=== PATIENT | female | born 2000 | race Caucasian/White ===

== ENCOUNTER 2025-09-05 21:17 | Emergency (ER) | payer BC ==
[2025-09-05 22:36] LABS: #Basophils 0.07 10x3/uL (0.0-0.2); #Eosinophils 0.07 10x3/uL (0.0-0.5); #Monocytes 0.63 10x3/uL (0.0-1.1); #Neutrophils 7.21 10x3/uL (1.5-8.4); %Basophils 0.7 % (0.0-2.0); %Eosinophils 0.7 % (0.0-6.0); %Lymphocytes 17.4 % (18.0-47.0); %Monocytes 6.5 % (0.0-10.0); %Neutrophils 74.5 % (40.0-75.0); Hematocrit 39.8 % (34.9-44.5); Hemoglobin 13.8 g/dL (12.0-15.5); Mean Corpuscular Hemoglobin 31.2 pg (27.0-33.0); Mean Corpuscular Volume 89.8 fL (81.6-98.3); Platelet Count 304 10x3/uL (150-450); Red Blood Cell (RBC) Count 4.43 10x6/uL (3.90-5.03); White Blood Cell (WBC) Count 9.69 10x3/uL (3.5-10.5)
[2025-09-05 22:45] LABS: BHCG - Serum Negative (NEGATIVE); Pregs Control Background? CLEAR/WHITE (CLR/WHITE); Pregs Control Bar Appear? YES (CONTROL BAR)
[2025-09-05 22:57] LABS: Troponin I Less than 0.010 ng/mL (< 0.028)
[2025-09-05 23:05] LABS: ALT (SGPT) 25 U/L (Less than 34); AST (SGOT) 30 U/L (11-34); Albumin 4.4 g/dL (3.1-4.5); Alkaline Phosphatase 42 U/L (40-110); Anion Gap 13 mmol/L (10-20); BUN (Urea Nitrogen) 8 mg/dL (7.0-18.7); Bilirubin, Total 0.3 mg/dL (0.3-1.2); Calc. Creatinine Clearance 0 mL/min (70-130); Calcium 9.5 mg/dL (7.8-10.44); Carbon Dioxide 21 mmol/L (22-29); Chloride 108 mmol/L (98-107); Globulin 2.7 g/dL (2.4-3.5); Glucose 110 mg/dL (70-105); Potassium 4.1 mmol/L (3.5-5.1); Sodium 138 mmol/L (136-145)
[2025-09-05 23:12] LABS: Free T4 (Free Thyroxine) 1.39 ng/dL (0.70-1.48); Thyroid Stimulating Hormone 0.9915 uIU/mL (0.35-4.94)
[2025-09-05] MEDS ORDERED: diphenhydrAMINE 50 MG/ML VIAL ONE (23:17)
[2025-09-05] MEDS ORDERED: Metoclopramide HCl 10 MG (2 mL) VIAL ONE (23:17)
[2025-09-05] MEDS ORDERED: Acetaminophen 500 MG TAB ONE (23:17)
== END 2025-09-06 01:11 | disposition home or self-care (01) ==
LOC: CSHERS 21:17
DX: R42 Dizziness and giddiness (principal); I77.71 Dissection of carotid artery
CPT/HCPCS: 70450; 70496; 70498; 71045; 80053; 84439; 84443; 84484; 84703; 85025; 93005; 94760; 96361; 96365; 96375; J1200; J2765

== ENCOUNTER → 2025-09-06 | Emergency (ER) | payer BC ==
[~2025-09-06] MED LIST: Metoclopramide HCl 10 MG (2 mL) VIAL ONE; diphenhydrAMINE 50 MG/ML VIAL ONE
[2025-09-06 21:28] LABS: #Basophils 0.07 10x3/uL (0.0-0.2); #Eosinophils 0.14 10x3/uL (0.0-0.5); #Monocytes 0.54 10x3/uL (0.0-1.1); #Neutrophils 3.93 10x3/uL (1.5-8.4); %Basophils 0.9 % (0.0-2.0); %Eosinophils 1.9 % (0.0-6.0); %Lymphocytes 36.9 % (18.0-47.0); %Monocytes 7.3 % (0.0-10.0); %Neutrophils 52.9 % (40.0-75.0); Hematocrit 43.7 % (34.9-44.5); Hemoglobin 14.7 g/dL (12.0-15.5); Mean Corpuscular Hemoglobin 31.1 pg (27.0-33.0); Mean Corpuscular Volume 92.6 fL (81.6-98.3); Platelet Count 273 10x3/uL (150-450); Red Blood Cell (RBC) Count 4.72 10x6/uL (3.90-5.03); White Blood Cell (WBC) Count 7.43 10x3/uL (3.5-10.5)
[2025-09-06 21:42] LABS: ALT (SGPT) 26 U/L (Less than 34); AST (SGOT) 32 U/L (11-34); Albumin 4.4 g/dL (3.1-4.5); Alkaline Phosphatase 42 U/L (40-110); Anion Gap 13 mmol/L (10-20); BUN (Urea Nitrogen) 10 mg/dL (7.0-18.7); Bilirubin, Total 0.3 mg/dL (0.3-1.2); Calc. Creatinine Clearance 0 mL/min (70-130); Calcium 9.5 mg/dL (7.8-10.44); Carbon Dioxide 24 mmol/L (22-29); Chloride 108 mmol/L (98-107); Globulin 3.0 g/dL (2.4-3.5); Glucose 80 mg/dL (70-105); Potassium 3.7 mmol/L (3.5-5.1); Sodium 141 mmol/L (136-145)
== END ==
LOC: CSHERS 20:15
DX: R51.9 Headache, unspecified (principal); R42 Dizziness and giddiness; R29.700 NIHSS score 0; Z79.82 Long term (current) use of aspirin
CPT/HCPCS: 80053; 85025; 96374; 96375; J1200; J2765